=== PATIENT | female | born 1965 | race Caucasian/White ===

== ENCOUNTER 2019-02-07 05:56 | Day surgery (SDC) | payer OTHER ==
[~2019-02-07] VITALS: Ht 157.5 cm; Wt 90.7 kg
[2019-02-07] MEDS ORDERED: LIDOCAINE 2% 100 MG/5 ML UJET TP ONE (08:05)
[2019-02-07] MEDS ORDERED: KETOROLAC 60 MG/2 ML VIAL IM ONE ×2 (08:05→09:20)
[2019-02-07] MEDS ORDERED: KETOROLAC 60 MG/2 ML VIAL IM SCH (09:22)
== END 2019-02-07 09:20 | disposition home or self-care (01) ==
LOC: MMU 05:56 → MDS 05:56
PROVIDERS: ATTEND Internal Medicine Gastroenterology
DX: Z12.11 Encounter for screening for malignant neoplasm of colon (principal); D12.3 Benign neoplasm of transverse colon; D12.2 Benign neoplasm of ascending colon; K64.8 Other hemorrhoids; E78.5 Hyperlipidemia, unspecified; J45.909 Unspecified asthma, uncomplicated; E78.00 Pure hypercholesterolemia, unspecified; Z88.1 Allergy status to other antibiotic agents; Z98.51 Tubal ligation status; Z98.890 Other specified postprocedural states; Z90.49 Acquired absence of other specified parts of digestive tract
CPT/HCPCS: 45385; J1885

== ENCOUNTER 2020-05-28 07:57 | Day surgery (SDC) | payer OTHER, SELFPAY ==
[~2020-05-28] VITALS: Ht 157.5 cm; Wt 99.8 kg
[2020-05-28] MEDS ORDERED: fentaNYL citrate 0.05 MG/ML VIAL ONE (12:12)
[2020-05-28] MEDS ORDERED: MIDAZOLAM 2 MG/2 ML VIAL ONE (12:12)
== END 2020-05-28 13:10 | disposition home or self-care (01) ==
LOC: MDS 07:57 → MFCC 09:37 → MDS 13:10
PROVIDERS: ATTEND Internal Medicine Gastroenterology
DX: K21.9 Gastro-esophageal reflux disease without esophagitis (principal); Z11.59 Encounter for screening for other viral diseases
CPT/HCPCS: 36415; 43239; 86677; J2250; U0003; J3010

== ENCOUNTER 2023-07-20 07:59 | Day surgery (SDC) | payer OTHER ==
[~2023-07-20] VITALS: Ht 157.5 cm; Wt 110.2 kg
[2023-07-20] MEDS ORDERED: LIDOCAINE 2% 100 MG/5 ML UJET TP ONE (09:17)
[2023-07-20] MEDS ORDERED: fentaNYL citrate 0.05 MG/ML VIAL ONE (09:17)
[2023-07-20] MEDS ORDERED: fentaNYL citrate 0.05 MG/ML VIAL IVP ONE (13:30)
== END 2023-07-20 10:10 | disposition home or self-care (01) ==
LOC: MOR 07:59 → MMU 07:59 → MOR 10:10
PROVIDERS: ATTEND Internal Medicine Gastroenterology
DX: Z12.11 Encounter for screening for malignant neoplasm of colon (principal); E11.9 Type 2 diabetes mellitus without complications; J45.909 Unspecified asthma, uncomplicated; E78.00 Pure hypercholesterolemia, unspecified; Z79.84 Long term (current) use of oral hypoglycemic drugs; Z90.49 Acquired absence of other specified parts of digestive tract; Z86.010 Personal history of colon polyps; Z79.899 Other long term (current) drug therapy
CPT/HCPCS: 45378; 82948; J3010